=== PATIENT | male | born 1995 | race Caucasian/White ===

== ENCOUNTER 2021-12-25 19:39 | Emergency (ER) | payer BC, OTHER ==
[2021-12-25 19:57] VITALS: O2SAT 100
[2021-12-25] MEDS ORDERED: XYLOCAINE 1% HCL 20 ML MDV IJ ONE (20:08)
[2021-12-25] MEDS ORDERED: BACIGUENT PACKET TP ONE (20:08)
[2021-12-25] MEDS ORDERED: XYLOCAINE 1% HCL 20 ML MDV ONE (20:09)
[2021-12-25] MEDS ORDERED: BACIGUENT PACKET ONE (20:09)
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
[2021-12-25 20:17] VITALS: BP 129/84; PULSE 56
== END 2021-12-25 20:19 | disposition home or self-care (01) ==
LOC: ED 19:39
DX: S01.81XA Laceration without foreign body of other part of head, initial encounter (principal); W22.8XXA Striking against or struck by other objects, initial encounter; Z28.310 Unvaccinated for COVID-19
CPT/HCPCS: 12001; 96372; 99283; A9270-GY

== ENCOUNTER 2022-12-09 12:38 | Emergency (ER) | payer OTHER ==
[2022-12-09 12:59] VITALS: TEMP 98
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
[2022-12-09 14:02] VITALS: BP 136/73; PULSE 68; RESP 18; O2SAT 98
== END 2022-12-09 14:09 | disposition home or self-care (01) ==
LOC: ED 12:38
DX: S06.0X0A Concussion without loss of consciousness, initial encounter (principal); V48.5XXA Car driver injured in noncollision transport accident in traffic accident, initial encounter; Y92.830 Public park as the place of occurrence of the external cause; Z28.310 Unvaccinated for COVID-19
CPT/HCPCS: 70450; 99282

== ENCOUNTER 2023-03-08 08:35 | Emergency (ER) | payer OTHER ==
[2023-03-08 08:46] VITALS: TEMP 97.2
[2023-03-08] MEDS ORDERED: ZOFRAN ODT 4 MG PO ONE (08:57)
[2023-03-08] MEDS ORDERED: Norflex 60 MG/2 ML IM ONE (08:58)
[2023-03-08] MEDS ORDERED: solu-MEDROL 125 MG, Sterile H2O 10 ml 2 ML IM ONE ×2 (08:58)
[2023-03-08] MEDS ORDERED: Hydromorphone 1 mg/ml Injection IM ONE (08:58)
[2023-03-08] MEDS ORDERED: Norflex 60 MG/2 ML ONE (09:06)
[2023-03-08] MEDS ORDERED: ZOFRAN ODT 4 MG ONE (09:06)
[2023-03-08] MEDS ORDERED: Sterile H2O 10 ml IJ ONE (09:06)
[2023-03-08] MEDS ORDERED: solu-MEDROL ONE (09:07)
[2023-03-08] MEDS ORDERED: Hydromorphone 1 mg/ml Injection ONE (09:07)
--- NOTE | 2023-03-08 09:11 | ERPHSYRPT ---
- History of Present Illness Time Seen by Provider: 03/08/23 08:55 Source: patient, family Exam Limitations: no limitations Patient Subjective Stated Complaint: pt here for a fall at work today, states he tripped over a rock and landed on right side. co right rib pain. states pain with deep breath Triage Nursing Assessment: pt alert,arrived per wc, alert, in pain shacky, resp easy, skin w/d/p. redness to rigth rib area, chest clear, Physician History: This is a 27-year-old white male patient is allergic to penicillin but is not taking any medications chronically and presents to the emergency department with significant pain in the right side of his chest and ribs. Patient works at the [employer] and he fell landing on his right chest and anterior lateral ribs. He is in significant pain and he states it hurts to take a deep breath in. Patient states that he did not hit his head. He has no headache he has no neck pain. However he said because of the severe pain he feels as though he is going to pass out. He has no complaints of abdominal pain. He has no lower extremity pain he has no back pain. Occurred: just prior to arrival Reason for Fall: tripped Injuries/Pain Location: chest (Right anterior lateral chest and ribs) Loss of Consciousness: no loss of consciousness Quality: aching, sharpness, stabbing Severity of Pain-Max: moderate Severity of Pain-Current: moderate Modifying Factors: Improves With: movement, other (Deep breathing) Associated Symptoms (Fall): chest pain (Right anterior lateral chest wall pain), muscle spasms, No abdominal pain, No back pain, No extremity injury, No headache Allergies/Adverse Reactions: Penicillins Allergy (Verified 03/08/23 08:43) Hx Tetanus, Diphtheria Vaccination/Date Given: No Hx Influenza Vaccination/Date Given: No Hx Pneumococcal Vaccination/Date Given: No Immunizations Up to Date: Yes Travel Risk - International Travel Have you traveled outside of the country in past 3 weeks: No - Coronavirus Screening Are you exhibiting any of the following symptoms?: No Close contact with a COVID-19 positive Pt in past 14-21 Days: No - Vaccine Status Have you recieved a Covid-19 vaccination: No - Review of Systems Constitutional: No Symptoms Eyes: No Symptoms Ears, Nose, & Throat: No Symptoms Respiratory: No Symptoms Cardiac: No Symptoms Abdominal/Gastrointestinal: No Symptoms Genitourinary Symptoms: No Symptoms Musculoskeletal: Fall, Injury (Right anterior lateral chest wall) Skin: No Symptoms Neurological: No Symptoms Psychological: No Symptoms Endocrine: No Symptoms Hematologic/Lymphatic: No Symptoms Immunological/Allergic: No Symptoms All Other Systems: Reviewed and Negative - Past Medical History Pertinent Past Medical History: Yes Musculoskeletal History: Fractures, Other Other Medical History: twisted S-I joint - Past Surgical History Past Surgical History: Yes Musculoskeletal: Orthopedic Surgery Other Surgical History: L wrist, plate and screws - Social History Smoking Status: Never smoker Exposure to second hand smoke: No Drug Use: none Patient Lives Alone: No - Nursing Vital Signs Nursing Vital Signs: Initial Vital Signs Temperature 97.2 F 03/08/23 08:45 Pulse Rate 68 03/08/23 08:45 Respiratory Rate 18 03/08/23 08:45 Blood Pressure 117/20 03/08/23 08:45 O2 Sat by Pulse Oximetry 100 03/08/23 08:45 Pain Scale Pain Intensity 9 - Luz Coma Score Best Eye Response ([place]): (4) open spontaneously Best Verbal Response ([place]): (5) oriented Best Motor Response (Luz): (6) obeys commands [place] Total: 15 - Physical Exam General Appearance: mild distress, alert, anxiety, thin Head Injury: no evidence of injury Eye Exam: PERRL/EOMI, eyes nml inspection ENT Exam: airway nml, nml ext.inspection, No evidence of ENT injury Neck Exam: supple, trachea midline, full range of motion, normal alignment, normal inspection Respiratory/Chest Exam: chest tenderness (Right anterior lateral lower chest wall tenderness), normal breath sounds, No respiratory distress, No ecchymosis, No crepitus, No decreased breath sounds Cardiovascular Exam: normal heart sounds, regular rate/rhythm Gastrointestinal Exam: soft, normal bowel sounds, No tenderness Rectal Exam: not done Back Exam: normal inspection, normal range of motion, No CVA tenderness, No vertebral tenderness Extremity Exam: normal inspection, normal range of motion, capillary refill <3 sec, pelvis stable Neurologic Exam: alert, oriented x 3, cooperative, vp integrity II-XII nml as tested, normal mood/affect, nml cerebellar function, nml station & gait, sensation nml Skin Exam: normal color, warm, dry SpO2 Interpretation: normal SpO2: 100 O2 Delivery: Room Air - Course Nursing assessment & vital signs reviewed: Yes Ordered Tests: Active Orders 24 hr Category Date Time Status CHEST WITHOUT CONTRAST [CT] Stat Exams 03/08/23 08:59 Completed Medication Summary Discontinued Medications Generic Name Dose Route Start Last Admin Trade Name Hector PRN Reason Stop Dose Admin Methylprednisolone Sodium 0 mg 03/08/23 08:58 03/08/23 09:07 Succinate 125 mg/ Sterile IM 03/08/23 08:59 125 mg Water 2 ml STAT ONE Administration Hydromorphone HCl 1 mg 03/08/23 08:58 03/08/23 09:08 Hydromorphone 1 Mg/1ml Inj IM 03/08/23 08:59 1 mg STAT ONE Administration Hydromorphone HCl Confirm 03/08/23 09:07 Hydromorphone 1 Mg/1ml Inj Administered 03/08/23 09:08 Dose 1 mg .ROUTE .STK-MED ONE Methylprednisolone Sodium Succinate Confirm 03/08/23 09:07 Methylprednis Sod Succ 125 Mg/2 Ml Vial Administered 03/08/23 09:08 Dose 125 mg .ROUTE .STK-MED ONE Ondansetron HCl 4 mg 03/08/23 08:57 03/08/23 09:08 Zofran 4 Mg/Udtablet Orally Disintegrating PO 03/08/23 08:58 4 mg STAT ONE Administration Ondansetron HCl Confirm 03/08/23 09:06 Zofran 4 Mg/Udtablet Orally Disintegrating Administered 03/08/23 09:07 Dose 4 mg .ROUTE .STK-MED ONE Orphenadrine Citrate 60 mg 03/08/23 08:58 03/08/23 09:08 Orphenadrine Citrate 60 Mg/2 Ml Vial IM 03/08/23 08:59 60 mg STAT ONE Administration Orphenadrine Citrate Confirm 03/08/23 09:06 Orphenadrine Citrate 60 Mg/2 Ml Vial Administered 03/08/23 09:07 Dose 60 mg .ROUTE .STK-MED ONE Sterile Water Confirm 03/08/23 09:06 Water For Injection,Sterile 10 Ml Vial Administered 03/08/23 09:07 Dose 10 ml IJ .STK-MED ONE - Progress Progress: improved, pain not gone completely, re-examined Progress Note: 11/02/23 09:10 This patient's medical issue is 1 of low complexity. The level of complexity in the work-up performed is based on review of the patient's past medical history, review of the patient's medication list, review the patient's drug allergy list, history of present illness and physical findings on examination. This medical work-up includes providing the patient with intramuscular Dilaudid, Norflex and Solu-Medrol 120 mg as well as oral Zofran 4 mg ODT. In addition I obtained a CT scan of the chest without contrast. 03/08/23 10:19 CT scan of the chest without contrast reveals no acute, emergent process. There is no mention of rib fractures or lung contusion. There is no hemothorax or pneumothorax mention. I reviewed the impression of the radiologist interpretation. Counseled pt/family regarding: diagnosis, need for follow-up, rad results Medical Desision Making - Independent Historian Additional History obtained from: Spouse - Diagnostic Testing Diagnostic test were ordered, analyzed, and reviewed by me: Yes Radiological Interpretation: Reviewed by me, Teleradiologist Report - Risk of complications The pt has a mod risk of morbidity or mortality based on: Need for prescription drug management - Departure Departure Disposition: Home Clinical Impression: Rib contusion Condition: Stable Critical Care Time: No Referrals: DOCTOR,NO FAMILY [Primary Care Provider] - Follow up/PCP as directed Additional Instructions: Ice pack to tender area 3 times a day for the next 48 hours. Take your med ications as prescribed. Follow-up with your primary care provider for further evaluation management including pain management. Forms: Work/School Release Form Prescriptions: Oxycodone HCl/Acetaminophen [Percocet 5-325 mg Tablet] 1 each PO Q8H PRN PRN #6 tablet MDD 3 PRN Reason: Moderate To Severe Pain Prednisone 10 mg [Deltasone 10 mg] 10 mg PO TID #12 tablet
--- NOTE | 2023-03-08 09:47 | XRAY ---
Indication: Chest wall pain. Status post fall. Multiple contiguous axial images obtained through the chest without contrast. Comparison: None Lungs inflated and clear. Heart not enlarged. Aorta is normal in course and caliber. No pathologic mediastinal lymphadenopathy. Bony thorax including ribs intact. Limited upper abdomen unremarkable. Impression: Normal CT chest without contrast exam.
[2023-03-08 10:58] VITALS: BP 106/63; PULSE 69; RESP 19; O2SAT 98
== END 2023-03-08 11:02 | disposition home or self-care (01) ==
LOC: ED 08:35
DX: S20.211A Contusion of right front wall of thorax, initial encounter (principal); W01.0XXA Fall on same level from slipping, tripping and stumbling without subsequent striking against object, initial encounter; Y92.64 Mine or pit as the place of occurrence of the external cause; Y99.0 Civilian activity done for income or pay; Z28.310 Unvaccinated for COVID-19; Z79.891 Long term (current) use of opiate analgesic; Z79.52 Long term (current) use of systemic steroids
CPT/HCPCS: 71250; 96372; 99283; J1170; J2360; J2930; Q0162